=== PATIENT | male | born 1995 | race Caucasian/White ===

== ENCOUNTER 2017-09-22 14:42 | Emergency (ER) | payer SELFPAY ==
[~2017-09-22] VITALS: Ht 170.1 cm; Wt 74.8 kg
[2017-09-22] MEDS ORDERED: Motrin,Rufen800 MG PO ×2 (16:21→16:43)
[2017-09-22] MEDS ORDERED: CYCLOBENZAPRINE10 MG PO ×2 (16:21→16:43)
== END 2017-09-22 16:40 | disposition home or self-care (01) ==
LOC: ED 14:42
DX: S20.212A Contusion of left front wall of thorax, initial encounter (principal); S30.1XXA Contusion of abdominal wall, initial encounter; V49.88XA Car occupant (driver) (passenger) injured in other specified transport accidents, initial encounter; Y93.I9 Activity, other involving external motion; Y92.89 Other specified places as the place of occurrence of the external cause; Y99.8 Other external cause status

== ENCOUNTER 2018-06-24 12:16 | Emergency (ER) | payer OTHER ==
[~2018-06-24] VITALS: Ht 170.1 cm; Wt 70.3 kg
[~2018-06-24 12:16] MED LIST: CYCLOBENZAPRINE10 MG PO; Motrin,Rufen800 MG PO
[2018-06-24] MEDS ORDERED: PROVENTIL HFA6.7 GM INH ×2 (14:28→14:29)
[2018-06-24] MEDS ORDERED: PREDNISONE20 M1 PO ×2 (14:28→14:29)
[2018-06-24] MEDS ORDERED: TESSALON PERLE100 M1 PO ×2 (14:28→14:29)
== END 2018-06-24 14:36 | disposition left against medical advice (07) ==
LOC: ED 12:16
DX: J40 Bronchitis, not specified as acute or chronic (principal)